=== PATIENT | female | born 1995 | race Caucasian/White ===

== ENCOUNTER 2016-11-27 00:59 | Emergency (ER) | payer BC ==
--- NOTE | ~2016-11-27 | ER ---
ADMIT: 11/27/2016 RM/LOC: ER [facility] MR#: [id number] [facility] [address] [place], [place] [id number] [place] [address] Emergency Room Report SEX: F AGE: 21 : 1995 DATE: 11/27/2016 ADDENDUM: A 21-year-old female, presents to the ER complaining of abdominal pain. It has been going on for at least 2 weeks. She has had some mild nausea with no vomiting. She states she is sexually active, but has Mirena in place. It does not have menstrual periods. She denies any urinary symptoms or bowel problems. On examination, she has some suprapubic and right lower quadrant tenderness, but her abdomen is soft. No rebound tenderness. No guarding. We did get a urinalysis, which is negative for , but the urine was contaminated and difficult to interpret. CBC was done, which showed a white count of 10.4, otherwise negative and her CMP was normal. I ended up getting the CT of the abdomen and pelvis, which shows a normal appendix, but mild concentric bladder wall thickening consistent with cystitis. The patient was given Bactrim here. Discharged home on Bactrim b.i.d. for a week and to follow up with Dr. Deluna next week if not significantly improved. Jourdan Stewart MD/ stan JOB #: [id number] CC: Jourdan Stewart MD, Attending Physician
== END 2016-11-27 03:02 | disposition home or self-care (01) ==
LOC: ER 00:59
DX: R10.31 Right lower quadrant pain (principal); N39.0 Urinary tract infection, site not specified; Z88.0 Allergy status to penicillin; Z79.899 Other long term (current) drug therapy; Z98.890 Other specified postprocedural states